=== PATIENT | female | born 1965 | race Caucasian/White ===

== ENCOUNTER 2016-09-13 10:59 | Outpatient (CLI) | payer BC ==
[2014-04-20 17:44] VITALS: O2SAT 95
== END 2016-09-13 11:00 | disposition home or self-care (01) ==
LOC: CONVCARE 10:59
PROVIDERS: ATTEND Orthopaedic Surgery
DX: S92.324D Nondisplaced fracture of second metatarsal bone, right foot, subsequent encounter for fracture with routine healing (principal); S92.344D Nondisplaced fracture of fourth metatarsal bone, right foot, subsequent encounter for fracture with routine healing
CPT/HCPCS: 73630

== ENCOUNTER 2016-10-11 10:00 | Outpatient (CLI) | payer BC ==
[2014-04-20 17:44] VITALS: O2SAT 95
== END 2016-10-11 10:01 | disposition home or self-care (01) ==
LOC: CONVCARE 10:00
PROVIDERS: ATTEND Orthopaedic Surgery
DX: S92.321D Displaced fracture of second metatarsal bone, right foot, subsequent encounter for fracture with routine healing (principal); S92.341D Displaced fracture of fourth metatarsal bone, right foot, subsequent encounter for fracture with routine healing
CPT/HCPCS: 73630

== ENCOUNTER 2016-12-06 08:41 | Outpatient (CLI) | payer BC ==
[2014-04-20 17:44] VITALS: O2SAT 95
== END 2016-12-06 08:42 | disposition home or self-care (01) ==
LOC: CONVCARE 08:41
PROVIDERS: ATTEND Orthopaedic Surgery
DX: S92.321D Displaced fracture of second metatarsal bone, right foot, subsequent encounter for fracture with routine healing (principal); S92.341D Displaced fracture of fourth metatarsal bone, right foot, subsequent encounter for fracture with routine healing
CPT/HCPCS: 73630

== ENCOUNTER 2017-01-17 07:49 | Outpatient (CLI) | payer BC ==
[2014-04-20 17:44] VITALS: O2SAT 95
== END 2017-01-17 07:50 | disposition home or self-care (01) ==
LOC: CONVCARE 07:49
PROVIDERS: ATTEND Orthopaedic Surgery
DX: S92.341D Displaced fracture of fourth metatarsal bone, right foot, subsequent encounter for fracture with routine healing (principal); S92.321D Displaced fracture of second metatarsal bone, right foot, subsequent encounter for fracture with routine healing
CPT/HCPCS: 73630